=== PATIENT | female | born 1965 | race Asian ===

== ENCOUNTER 2019-07-22 13:18 | Outpatient (CLI) | payer OTHER | END 2019-07-22 13:27 | disposition short-term general hospital (02) | LOC: AMB 13:18 | DX: M54.89 Other dorsalgia (principal); M54.2 Cervicalgia; M25.512 Pain in left shoulder; M25.511 Pain in right shoulder; V49.40XA Driver injured in collision with unspecified motor vehicles in traffic accident, initial encounter; Y92.89 Other specified places as the place of occurrence of the external cause | CPT/HCPCS: A0425; A0427 ==

== ENCOUNTER 2019-07-22 13:45 | Emergency (ER) | payer OTHER ==
[~2019-07-22] VITALS: Ht 157.5 cm; Wt 101.6 kg
[2019-07-22 13:50] VITALS: TEMP 98
[2019-07-22 15:10] LABS: PLATELET COUNT 360 K/uL (152-353)
[2019-07-22 15:22] LABS: POTASSIUM 3.9 mmol/L (3.6-5.2)
[2019-07-22 15:53] LABS: PARTIAL THROMBOPLASTIN TIME 23.3 SECONDS (24.5-33.6)
[2019-07-22 16:10] VITALS: BP 154/81
== END 2019-07-22 16:45 | disposition home or self-care (01) ==
LOC: ED 13:45
PROVIDERS: Hospitalist
DX: S16.1XXA Strain of muscle, fascia and tendon at neck level, initial encounter (principal); S46.912A Strain of unspecified muscle, fascia and tendon at shoulder and upper arm level, left arm, initial encounter; S46.911A Strain of unspecified muscle, fascia and tendon at shoulder and upper arm level, right arm, initial encounter; V49.40XA Driver injured in collision with unspecified motor vehicles in traffic accident, initial encounter
CPT/HCPCS: 80048; 85027; 85610; 85730; 96374; 99284; J1885